=== PATIENT | female | born 1985 | race African-American/Black ===

== ENCOUNTER 2017-04-30 21:03 | Emergency (ER) | payer OTHER ==
[~2017-04-30] VITALS: Ht 160 cm; Wt 65.9 kg
[2017-05-01 01:21] VITALS: BP 122/70
[2017-05-01] MEDS ORDERED: KETOROLAC TROMETHAMINE 30 MG/ML VIAL IM ONE (01:45)
== END 2017-05-01 01:47 | disposition home or self-care (01) ==
LOC: EMS 21:04
DX: S39.012A Strain of muscle, fascia and tendon of lower back, initial encounter (principal); X58.XXXA Exposure to other specified factors, initial encounter; Y93.89 Activity, other specified; Y92.89 Other specified places as the place of occurrence of the external cause; Y99.8 Other external cause status
CPT/HCPCS: 96372; 99283; J1885